=== PATIENT | male | born 1975 | race Caucasian/White ===

== ENCOUNTER 2017-10-29 22:53 | Emergency (ER) | payer OTHER ==
[2017-10-29 23:01] VITALS: BMI 37.6
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
[2017-10-29] MEDS ORDERED: Morphine 4 mg/ml ISec IM STA (23:04)
[2017-10-29 23:06] VITALS: TEMP 98.1
[2017-10-30] MEDS ORDERED: Morphine 4 mg/ml ISec IM STA (00:27)
[2017-10-30 01:16] VITALS: BP 141/88; PULSE 80; RESP 18; O2SAT 96
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
== END 2017-10-30 01:31 | disposition home or self-care (01) ==
LOC: ED 22:53
DX: M54.2 Cervicalgia (principal); M54.5 Low back pain
CPT/HCPCS: 70450; 72125; 72131; 96372; 99285; J1885; J2270